=== PATIENT | male | born 1980 | race Caucasian/White ===

== ENCOUNTER 2017-07-07 17:38 | Emergency (ER) | payer SELFPAY ==
[~2017-07-07] VITALS: Ht 170.2 cm; Wt 68.0 kg
[2017-07-07 17:44] VITALS: BP 116/73
== END 2017-07-07 18:00 | disposition left against medical advice (07) ==
LOC: ER 17:51
DX: R53.1 Weakness (principal); Z53.21 Procedure and treatment not carried out due to patient leaving prior to being seen by health care provider